=== PATIENT | male | born 1985 | race Two or more races ===

== ENCOUNTER 2019-01-26 02:46 | Emergency (ER) | payer SELFPAY ==
[~2019-01-26] VITALS: Ht 167.6 cm; Wt 124.7 kg
--- NOTE | 2019-01-26 03:15 | NUR ---
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 PT AOX4 RR EVEN AND UNLABORED. NO SOB NOTED. NO NVD AT THIS TIME. NO ACUTE DISTRESS NOTED. PT GOWNED ANDPLACED ON MONITOR
--- NOTE | 2019-01-26 03:20 | NUR ---
RADIOLOGY AT BEDSIDE FOR XRAY
[2019-01-26 03:34] LABS: BASOPHILS % (AUTO) 0.3 % (0.0-2.0); HEMATOCRIT 40 % (39-51); HEMOGLOBIN 13.5 g/dL (13.5-17.5); LYMPHOCYTES # (AUTO) 2.7 /CMM (0.8-4.8); LYMPHOCYTES % (AUTO) 25.6 % (20.0-44.0); MEAN CORPUSCULAR HGB CONC 34 g/dl (31.0-36.0); MEAN CORPUSCULAR VOLUME 85 fL (80-96); MONOCYTES # (AUTO) 0.6 /CMM (0.1-1.30); MONOCYTES % (AUTO) 5.9 % (2.0-12.0); NEUTROPHILS # (AUTO) 7.1 /CMM (1.8-8.9); NEUTROPHILS % (AUTO) 68.2 % (43.0-81.0); PLATELET COUNT (AUTO) 258 /CMM (150-450); RED BLOOD CELL COUNT(AUTO) 4.74 MIL/uL (4.5-6.0); WHITE BLOOD COUNT (AUTO) 10.5 K/uL (4.3-11.0)
[2019-01-26 04:01] LABS: CALCIUM, SERUM 9.2 mg/dL (8.5-10.1); CARBON DIOXIDE 26 mmol/L (21-32); CHLORIDE 106 mmol/L (98-107); CREATININE 0.9 mg/dL (0.6-1.3); POTASSIUM 3.9 mmol/L (3.5-5.1); SODIUM SERUM 142 mmol/L (136-145); UREA NITROGEN, BLOOD 14 mg/dL (7-18)
[2019-01-26 04:06] LABS: GLUCOSE 122 mg/dL (74-106)
--- NOTE | 2019-01-26 04:19 | NUR ---
CALLED [facility] FOR CHEST X-RAY TO BE READ.
--- NOTE | 2019-01-26 04:47 | NUR ---
IV removed. Catheter intact and site benign. Pressure and 4x4 applied to site. No bleeding noted. Patient discharged to home in stable condition. Written and verbal after care instructions given. Patient verbalizes understanding of instruction. ambulatory with a steady gait
[2019-01-26 04:52] VITALS: BP 159/97
== END 2019-01-26 04:53 | disposition home or self-care (01) ==
LOC: ER 02:48
DX: R06.02 Shortness of breath (principal); G89.29 Other chronic pain
CPT/HCPCS: 36415; 71045-TC; 80048-TC; 84484-TC; 85025-TC; 85378-TC